=== PATIENT | male | born 1975 | race Caucasian/White ===

== ENCOUNTER → 2016-12-23 | Outpatient (CLI) | payer BC ==
[2016-12-23 11:04] LABS: HEMATOCRIT 43.5 % (42-52); MEAN CELL VOLUME 88.8 fL (80-100); MEAN CORPUSCULAR HEMOGLOBIN 30.6 pg (25-34); MEAN CORPUSCULAR HGB CONC 34.5 g/dl (32-36); MEAN PLATELET VOLUME 9.8 fL (7.4-10.4); PLATELET COUNT 297 K/uL (130-400); WHITE BLOOD COUNT 5.59 K/uL (4.8-10.8)
[2016-12-23 11:29] LABS: ALT/SGPT 47 U/L (12-78); AST/SGOT 24 U/L (15-37); BLOOD UREA NITROGEN 10 mg/dl (7-18); BUN/CREATININE RATIO 12.2 (10-20); CALCIUM 8.7 mg/dl (8.5-10.1); CARBON DIOXIDE 30 mmol/L (21-32); CHLORIDE 107 mmol/L (98-107); CREATININE 0.79 mg/dl (0.60-1.40); GLUCOSE 85 mg/dl (70-99); POTASSIUM 4.1 mmol/L (3.5-5.1); SODIUM 144 mmol/L (136-145)
[2016-12-23 11:32] LABS: ALB/GLOB RATIO 1.3 (0.9-2); ALKALINE PHOSPHATASE 25 U/L (45-117); CHOLESTEROL 182 mg/dl (0-200); CHOLESTEROL/HDL RATIO 5.5; HDL CHOLESTEROL 33 mg/dl; LDL CHOLESTEROL CALCULATED 132 mg/dl; TRIGLYCERIDES 87 mg/dl (0-150); VERY LOW DENSITY LIPOPROT CALC 17 mg/dl
== END | disposition home or self-care (01) ==
LOC: C.LAB 10:10
PROVIDERS: ATTEND Family Medicine
DX: E78.5 Hyperlipidemia, unspecified (principal)